=== PATIENT | female | born 1960 | race Caucasian/White ===

== ENCOUNTER 2023-08-13 07:17 | Day surgery (SDC) | payer OTHER, SELFPAY ==
[2023-08-13 08:00] VITALS: BMI 36.2
--- NOTE | 2023-08-13 17:27 | ITS.CL.CARDI ---
Sample Body Builder - Cardioversion
Cardioversion
Procedure Report:
Date of Procedure: 08/13/23
Procedure: Cardioversion
Indication: Symptomatic atrial flutter
Performing Physician: Rox Patel DO [facility]
Technique: The patient was brought to the holding area. Signed informed consent was obtained. A time out was called and performed. The patient was anesthetized by the anesthesia service. Anticoagulation status was reviewed and appropriate. R2 pads
were placed anteriorly and posteriorly. A 150J synchronized biphasic shock restored normal sinus rhythm without significant bradycardia. There were no complications.
Conclusion: Uncomplicated cardioversion from atrial fibrillation to sinus rhythm.
Recommendation: Routine post cardioversion care. Continue solution designer anticoagulation.
== END 2023-08-13 10:44 | disposition home or self-care (01) ==
LOC: CATH 07:17
PROVIDERS: ATTENDING PHYSICIAN Internal Medicine Cardiovascular Disease; FAMILY PHYSICIAN Nurse Practitioner Family; OTHER PHYSICIAN Internal Medicine Cardiovascular Disease
DX: I48.3 Typical atrial flutter (principal); I48.0 Paroxysmal atrial fibrillation; R06.02 Shortness of breath; I10 Essential (primary) hypertension; F17.210 Nicotine dependence, cigarettes, uncomplicated; Z79.01 Long term (current) use of anticoagulants
CPT/HCPCS: 92960; 93005

== ENCOUNTER 2023-12-14 10:43 | Day surgery (SDC) | payer OTHER, SELFPAY ==
[2023-11-29 14:00] VITALS: BMI 37.8
[2023-11-29 14:38] LABS: % Basophils 0.6 % (0-2); % Eosinophils 1.5 % (0-6); % Immature Granulocytes 0.3 % (0-0.5); % Lymphocytes 18.5 % (20.5-51.1); % Monocytes 6.2 % (1.7-9.3); % Neutrophils 72.9 % (42.2-75.2); Absolute Eosinophils 0.1 10^3/uL (0-0.7); Absolute Lymphocytes 1.2 10^3/uL (1.2-3.4); Absolute Monocytes 0.4 10^3/uL (0.1-0.6); Absolute Neutrophils 4.8 10^3/uL (1.4-6.5); Hematocrit 41.6 % (37.0-47.0); Hemoglobin 14.5 g/dL (12.0-16.0); Mean Corp Hgb Conc. 34.9 g/dL (33.0-37.0); Mean Corpuscular Hgb 30.9 pg (27.0-31.0); Mean Corpuscular Volume 88.5 fL (81.0-99.0); Mean Platelet Volume 10.1 fL (7.4-10.4); Nucleated Red Blood Cells % 0 %; Platelet Count 189 10^3/uL (130-400); Red Cell Dist. Width 13.2 % (11.5-14.5); White Blood Cell Count 6.6 10^3/uL (4.8-10.8)
[2023-11-29 14:47] LABS: ALT (SGPT) 18 U/L (0-35); AST (SGOT) 19 U/L (14-36); Albumin 4.3 g/dl (3.5-5.0); Alkaline Phosphatase 85 U/L (38-126); Blood Urea Nitrogen 17 mg/dl (7-17); Calcium 9.8 mg/dl (8.4-10.2); Carbon Dioxide 27 mmol/L (22-30); Chloride 104 mmol/L (98-107); Estimated Creatinine Clearance 98 ml/min; Glucose 110 mg/dl (70-99); Magnesium 2.1 mg/dl (1.6-2.3); Potassium 4.1 mmol/L (3.5-5.1); Sodium 139 mmol/L (135-145); Total Bilirubin 1.2 mg/dl (0.2-1.3); Total Protein 6.5 g/dl (6.3-8.2); eGFR > 60.00
[2023-11-29 14:48] LABS: INR 1.14; PT 14.4 Sec (11.4-14.6)
[2023-12-14] VITALS (11 sets, daily range): BP systolic 114–149; BP diastolic 58–79; BMI 37.8
[2023-12-14] MEDS: NSS 500 IV (11:20)
[2023-12-14 13:52] LABS: ACT-LR - POC 305 Seconds (116-155)
[2023-12-14 14:13] LABS: ACT-LR - POC 316 Seconds (116-155)
--- NOTE | 2023-12-14 14:47 | ITS.CL.ABL ---
Distance Education Coordinator - Ablation
Ablation
Procedure Report:
ELECTROPHYSIOLOGY ABLATION STUDY
�
DATE:: December 14, 2023���������������������������� REFERRING:
�
INDICATION: Paroxysmal supraventricular tachycardia in the form of atrial fibrillation.� Typical atrial flutter. Prior PVI in 2021
�
HISTORY: See H and P.� As above
�
ANTIARRHYTHMIC DRUG: Metoprolol
�
PRE-PROCEDURE CJ: No atrial thrombus
�
PRESENTING RHYTHM: Sinus rhythm
�
'TIME-OUT':� called and confirmed.
�
SEDATION/ANESTHESIA:� provided via the anesthesia department using general anesthesia (LMA).
�
INTRAVENOUS/ARTERIAL ACCESS:
Right femoral venous - 8Fr
Left femoral venous - 8 Fr, 6 Fr
Vascade vascular closure was utilized for early ambulation and to potentially allow same-day discharge
Ultrasound guidance for bilateral femoral vein access was utilized by me to obtain access with demonstration of normal anatomy
CHADS-VASC Score:
�
HAS-Bled Score
�
PROCEDURE:�
1.� A decapolar CS catheter was placed within the CS for mapping and pacing.� This was also used as the reference catheter for the 3-D map. First we addressed the patient's CTI flutter. Utilizing a 4 mm tactic cath at 30 W, 42 degrees and up to
22nd lesion starting at 1020 g force from the tricuspid annulus back towards the IVC utilizing a 10 Setswana steerable sheath bidirectional block was brought about inner isthmus conduction time of 170 ms. There was reconnection at the back of the
line towards the IVC when rechecked at the end of the procedure and additional lesions were given with bidirectional block reestablished at the back of the line towards the IVC. Multipolar map was then made with the grid catheter demonstrating
bidirectional block. After reablation at the back of the IVC interest reduction, 170 ms reestablished with a greater than 50-minute waiting period.
�
2. The intracardiac ultrasound catheter was positioned in the RA to identify the FO for targeting of transseptal puncture, assist� in identification of the pulmonary vein ostia, monitoring pre and post ablation pulmonary vein flow velocities,
monitoring for 'bubble' formation during RF application as a sign of thermal injury,� and to monitor for pericardial effusion during mapping and ablation procedure.�� Left atrial size, LV ejection fraction, and pulmonary vein flows were monitored
pre and post ablation procedure. The other valves were inspected and found to be free of significant regurgitation or stenosis.
�
3.� Half of the calculated heparin bolus was administered prior to the first transeptal puncture.� Transseptal puncture was performed to diagnose RA and LA pressure so that safety of LA mapping and ablation could be further assessed, and to access
the left atrium and pulmonary veins for mapping and ablation.� This entailed advancing an 8 Fr SL-1 sheath with dilator into the superior vena cava and withdrawing both (monitoring intracardiac ultrasound, fluoroscopy and tip pressure) with the tip
oriented toward the atrial septum.� The fossa ovalis was engaged (indicated by sudden displacement of the sheath tip as well as tenting of the fossa seen on intracardiac ultrasound).� Left atrial access required a pass with the Brockenbrough needle
extended.� Left atrial catheter position was confirmed by pressure monitoring (RA mean pressure 8 mm Hg and LA mean pressure 14 mm Hg), LA saturation ( 99 %),� as well as fluoroscopy.� The sheath was advanced over the dilator and positioned in the
left atrium.� � The remainder of the calculated heparin bolus was administered and heparin was
infused to maintain ACT at 300 -350 seconds throughout the case.
�
4.� RA pacing was performed via the proximal decapolar poles and LA pacing was performed via the distal decapolr poles.
�
5. A quadrapolar catheter was first positioned at the His position for His Bundle recording which was tagged via the 3-D Navex sytem, and then passed to the RVA for RV pacing and recording.
�
6. The multipolar catheter and the pulselike catheter were placed in each of the LIPV, LSPV, RSPV and the RIPV.��The pulmonary veins were isolated at baseline.
�
7.� Next, a 3-D map was created using Navex.�� A 3-D reconstructed CT image was compared to the 3-D Navex map to assist in anatomic interpretation, mapping and ablation.� The CT image and the NavX image were fused.
�
8. The posterior wall was isolated with the pulse select catheter for a total of 62 lesions as well as additional lesions in the anterior of each of the left and right pulmonary veins. We also targeted substrate on the interatrial fossa. Entrance
and exit block was confirmed in all 4 pulmonary veins and the posterior wall. After isolation of left atrial posterior wall and the pulmonary vein lesions were given repeat stimulation demonstrated noninducibility for nonpulmonary triggers for
atrial fibrillation nor any other macro reentrant mechanism.
�
9. Normal sinus node and AV node function.
�
�
TOTAL FLOURO TIME: 23.0 minutes for 80 mGy
�
TOTAL RF DURATION: 0 minutes
�
REVERSAL OF HEPARIN: 40 mg of protamine, slow IV administration
�
COMPLICATIONS:�
None
Intracardiac US shows no pericardial effusion post ablation.
�
SUMMARY:��
Complex left atrial mapping and ablation. The pulmonary veins were isolated at baseline.
Isolation left atrial posterior wall, pulmonary lesions as above, CTI flutter ablation with bidirectional block achieved.
�
RECOMMENDATIONS:
1. Admit to monitored bed.�
2. Resume anticoagulation
3.� Ambulate in 2 hours given the Vascade vascular closure
4.� Out of bed 4 hours
�
Copy to: Dr. Loco Bates
�
[2023-12-14] MEDS: TYLENOL 650 MG PO (15:27)
--- NOTE | 2023-12-14 16:20 | W.PN.UPDATE ---
Update Note
Progress Note Update
63 yo WF s/p redo PVI, CTI flutter ablation (same day). She denies cp, sob, clara clears, b/l groins c/d/i no HT VASCADE closure, EKG SR. She will continue OAC Eliquis at 9pm at home tonight. She will continue metoprolol. Activity restrictions
reviewed. She will f/u Dr. Bates in 3 mo. She is for d/c home after 5pm if groins stable and voiding.
SUMMARY:��
Complex left atrial mapping and ablation. The pulmonary veins were isolated at baseline.
Isolation left atrial posterior wall, pulmonary lesions as above, CTI flutter ablation with bidirectional block achieved.
�
RECOMMENDATIONS:
1. Admit to monitored bed.�
2. Resume anticoagulation
3.� Ambulate in 2 hours given the Vascade vascular closure
4.� Out of bed 4 hours
�
Copy to: Dr. Loco Bates
== END 2023-12-14 17:01 | disposition home or self-care (01) ==
LOC: CATH 10:43
PROVIDERS: ATTENDING PHYSICIAN Internal Medicine Cardiovascular Disease; FAMILY PHYSICIAN Nurse Practitioner Family
DX: I48.0 Paroxysmal atrial fibrillation (principal); I48.3 Typical atrial flutter; Z90.49 Acquired absence of other specified parts of digestive tract; I11.0 Hypertensive heart disease with heart failure; I50.20 Unspecified systolic (congestive) heart failure; Q21.12 Patent foramen ovale; E66.9 Obesity, unspecified; Z68.36 Body mass index [BMI] 36.0-36.9, adult; F17.200 Nicotine dependence, unspecified, uncomplicated; Z98.1 Arthrodesis status; F41.9 Anxiety disorder, unspecified; I42.8 Other cardiomyopathies; Z79.899 Other long term (current) drug therapy; Z79.01 Long term (current) use of anticoagulants
CPT/HCPCS: C1732; C1730; C1894; C1769; C1766; C2630; C1892; C1759; 36415; 76937; 80053; 83735; 85025; 85347; 85610; 86850; 86900; 86901; 93005; 93655; 93656; C1760